=== PATIENT | female | born 1985 | race Caucasian/White ===

== ENCOUNTER 2022-02-28 01:41 | Observation (INO) ==
[2022-02-28] MEDS ORDERED: ONDANSETRON 4 MG/2 ML VIAL IV STA (01:59)
[2022-02-28] MEDS ORDERED: HYDROmorphone 1 MG/1 ML SYRINGE IV STA ×2 (01:59→03:13)
[2022-02-28] MEDS ORDERED: PANTOPRAZOLE 40 MG VIAL IV STA (01:59)
[2022-02-28] MEDS ORDERED: SODIUM CHLORIDE 0.9% 1,000 ML IV STA (01:59)
[2022-02-28 02:10] LABS: Basophils # 0.1 10*3/uL (0.0-0.2); Basophils % 0.5 % (0.0-0.8); Eosinophils # 0.1 10*3/uL (0.0-0.87); Eosinophils % 1.3 % (0.00-10.9); Hematocrit 42.7 VOL% (35.7-47.0); Immature Granulocytes % 0.2 %; Immature Granulocytes Absolute 0.02 #; Lymphocytes # 4.2 10*3/uL (1.4-4.0); Mean Corpuscular HGB Conc 35.1 GM/DL (32-36); Mean Platelet Volume 10.1 FL (9.6-12.0); Monocytes # 0.5 10*3/uL (0.11-0.8); Monocytes % 5.2 % (1.7-12.7); Neutrophils % 52.8 % (38.7-73.9); Platelet Count 402 T/CUMM (130-400); Red Cell Distribution Width 11.3 % (9.3-17.3); White Blood Count 10.4 T/CUMM (4-12)
[2022-02-28 02:29] LABS: Alanine Aminotransferase 16 U/L (13-56); Albumin 4.6 G/DL (3.4-5.0); Alkaline Phosphatase 113 U/L (45-117); Amylase 34 U/L (25-115); Aspartate Amino Transferase 13 U/L (0-37); Blood Urea Nitrogen 11 MG/DL (7-18); Calcium 9.9 MG/DL (8.5-10.1); Carbon Dioxide 25 MMOL/L (21-32); Chloride 106 MMOL/L (98-107); Glucose 96 MG/DL (74-106); Osmolality,Calculated 275.5 MOS/KG (273-304); Sodium 139 MMOL/L (136-145); Total Protein 8.2 G/DL (6.4-8.2)
[2022-02-28] MEDS ORDERED: PROMETHAZINE 25 MG/1 ML VIAL IM STA (03:13)
[2022-02-28] MEDS ORDERED: FAMOTIDINE 20 MG/2 ML VIAL IV ONE (03:27)
[2022-02-28 03:29] LABS: Bilirubin,Urine Negative (Negative); Blood, Urine Small mg/dL (Negative); Glucose,Urine (UA) Negative (Negative); Ketones,Urine Negative (Negative); Nitrite,Urine Negative (Negative); Protein,Urine Negative (Negative); RBC,Urine 1 /HPF (0-4); Squamous Epithelial Cell,Urine Occasional /HPF (0-10); Urine Appearance CLEAR (Clear); Urine Color Straw (Yellow); Urine Specific Gravity > 1.060 (1.001-1.035); Urine Urobilinogen < 2.0 eU/dL (<2.0)
[2022-02-28] MEDS ORDERED: FAMOTIDINE 20 MG/2 ML VIAL IV STA (03:30)
[2022-02-28] MEDS ORDERED: DICYCLOMINE 20 MG/2 ML AMP IM ONE (04:09)
[2022-02-28] MEDS ORDERED: KETOROLAC 30 MG/1 ML VIAL IV STA (04:09)
[2022-02-28] MEDS ORDERED: ONDANSETRON 4 MG/2 ML VIAL IV PRN (04:21)
[2022-02-28] MEDS ORDERED: MEPERIDINE 25 MG/1 ML VIAL IV ONE (05:19)
[2022-02-28] MEDS: SODIUM CHLORIDE 0.9% 1,000 ML IV SCH ×2 (05:44→18:09)
[2022-02-28 08:04] LABS: Basophils # 0.1 10*3/uL (0.0-0.2); Basophils % 0.5 % (0.0-0.8); Eosinophils # 0.1 10*3/uL (0.0-0.87); Eosinophils % 1.3 % (0.00-10.9); Hematocrit 38.2 VOL% (35.7-47.0); Hemoglobin 13.3 GM/DL (12.0-16.0); Immature Granulocytes % 0.3 %; Immature Granulocytes Absolute 0.03 #; Lymphocytes # 4.7 10*3/uL (1.4-4.0); Lymphocytes % 47.2 % (21.3-54.2); Mean Corpuscular HGB Conc 34.8 GM/DL (32-36); Mean Corpuscular Volume 98.5 FL (87-102); Mean Platelet Volume 10.4 FL (9.6-12.0); Monocytes # 0.6 10*3/uL (0.11-0.8); Monocytes % 6.3 % (1.7-12.7); Neutrophils % 44.4 % (38.7-73.9); Platelet Count 340 T/CUMM (130-400); Red Blood Count 3.88 MC/CUMM (3.8-5.5); Red Cell Distribution Width 11.3 % (9.3-17.3)
[2022-02-28] MEDS ORDERED: NON-FORMULARY MEDICATION (Dextroamphetamine-Amphetamine 20 mg tablet) PO SCH (09:00)
[2022-02-28] MEDS ORDERED: PANTOPRAZOLE 40 MG TABLET PO SCH (09:00)
[2022-02-28] MEDS: PROMETHAZINE 25 MG/1 ML VIAL IM PRN ×3 (09:42→22:54)
[2022-02-28] MEDS ORDERED: KETOROLAC 30 MG/1 ML VIAL IV SCH (10:00)
[2022-02-28] MEDS ORDERED: HydrOXYzine PAMOATE 50 MG CAPSULE PO PRN (10:15)
[2022-02-28] MEDS: HydrOXYzine PAMOATE 25 MG CAPSULE PO PRN ×3 (12:26→20:28)
[2022-02-28 12:37] LABS: Hematocrit 39.7 VOL% (35.7-47.0); Hemoglobin 13.8 GM/DL (12.0-16.0)
[2022-02-28] MEDS ORDERED: ALUM/MAG/SIMETH/LIDO VISC 1:1 30 ML BOTTLE PO PRN (16:20)
[2022-02-28] MEDS ORDERED: MEPERIDINE 50 MG/1 ML VIAL IV ONE (20:30)
[2022-02-28] MEDS: PANTOPRAZOLE 40 MG TABLET PO SCH (20:34)
[2022-02-28] MEDS ORDERED: LEMBOREXANT 10 MG PO SCH (21:00)
[2022-03-01] MEDS: SODIUM CHLORIDE 0.9% 1,000 ML IV SCH ×2 (03:09→13:17)
[2022-03-01 05:27] LABS: Basophils % 0.5 % (0.0-0.8); Eosinophils # 0.2 10*3/uL (0.0-0.87); Eosinophils % 2.9 % (0.00-10.9); Hematocrit 38.2 VOL% (35.7-47.0); Hemoglobin 13.2 GM/DL (12.0-16.0); Immature Granulocytes % 0.1 %; Immature Granulocytes Absolute 0.01 #; Lymphocytes # 4.7 10*3/uL (1.4-4.0); Lymphocytes % 60.5 % (21.3-54.2); Mean Corpuscular HGB Conc 34.6 GM/DL (32-36); Mean Platelet Volume 10.3 FL (9.6-12.0); Monocytes # 0.4 10*3/uL (0.11-0.8); Monocytes % 5.6 % (1.7-12.7); Neutrophils % 30.4 % (38.7-73.9); Platelet Count 310 T/CUMM (130-400); Red Blood Count 3.86 MC/CUMM (3.8-5.5); Red Cell Distribution Width 11.4 % (9.3-17.3); White Blood Count 7.8 T/CUMM (4-12)
[2022-03-01 05:52] LABS: Calcium 8.8 MG/DL (8.5-10.1); Osmolality,Calculated 279.1 MOS/KG (273-304); Potassium 3.6 MMOL/L (3.5-5.1)
[2022-03-01 05:57] LABS: Eosinophils 7 % (0-10); Lymphocytes 57 % (20-55); Platelet Estimate Normal; Total Cells Counted 100
[2022-03-01] MEDS ORDERED: LACTATED RINGERS 1,000 ML IV SCH (08:00)
[2022-03-01] MEDS: PANTOPRAZOLE 40 MG TABLET PO SCH (08:43)
[2022-03-01] MEDS ORDERED: LIDOCAINE 2% 5 ML VIAL ONE (08:59)
[2022-03-01] MEDS ORDERED: propofoL 200 MG/20 ML VIAL IV ONE (08:59)
[2022-03-01 12:05] VITALS: BP 118/80
== END 2022-03-01 14:26 | disposition home or self-care (01) ==
LOC: N.5E 01:41 → N.ED 01:41 → SUATTDRO 04:21 → N.5E 06:25
PROVIDERS: ADMIT Internal Medicine; ATTEND Internal Medicine